=== PATIENT | male | born 1965 | race Caucasian/White ===

== ENCOUNTER 2024-02-24 09:56 | Outpatient (AMB) | payer OTHER, SELFPAY ==
--- NOTE | 2024-02-24 10:20 | A.OFFPC_ITS ---
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 ?? Prior PCP:? Dr Bates Last office visit/CPE:? 3 yrs ago Acute issue(s):? Some upset stomach ?? PMHx:? Stomach Upset, PreDM, Dpression - has therapist/presciber SurgHx:? None FHx:?Dad: HLD, CAD, afib. Mom: CAD, [place] age 58. Sister: HLD. SocHx: Nonsmoker. EtOH 3 beers 2x a week. MJ daily for anxiety. 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 1. Little interest or pleasure in doing things: not at all 2. Feeling down, depressed, or hopeless: several days 3. Trouble falling or staying asleep, or sleeping too much: not at all 4. Feeling tired or having little energy: several days 5. Poor appetite or overeating: not at all 6. Feeling bad about yourself - or that you are a failure or have let yourself or your family down: not at all 7. Trouble concentrating on things, such as reading the newspaper or watching television: not at all 8. Moving or speaking so slowly that other people could have noticed. Or the opposite - being so fidgety or restless that you have been moving around a lot more than usual: not at all 9. Thoughts that you would be better off or of hurting yourself in some way: not at all Total score: 2 Depression Screening Interpretation: Negative Depression Screening Done: Yes 43291 - PHQ-9 Billing: Yes Source: Developed by Drs. Ranjan Lujan, Alma Don, Abbe Pal and colleagues, with an educational reuben from [employer]. Thrive Questionnaire Date Thrive assessed: 02/24/24 I am a: Patient What is your living situation today?: I have a steady place to live Within the past 12 months, did the food you bought not last and you didn't have the money to get more?: Never true Within the past 12 months, did you worry whether your food would run out before you got money to buy more?: Sometimes True Do you have trouble paying for medicines?: No Do you have trouble getting transportation to medical appointments?: No Do you have trouble paying your heating and electricity bill?: Yes Do you have trouble taking care of your child, family member or friend?: No Do you have trouble with day-to-day activities such as bathing, preparing meals, shopping, managing finances, etc.?: No Are you currently unemployed and looking for a job?: No Are you interested in more education?: No Please select the resources that you would like help with: Utilities Currently or been in a relationship where the following occur: No concerns reported THRIVE Score: 2 AUDIT C Alcohol Use Questionnaire (AUDIT-C) 1. How often do you have a drink containing alcohol?: 2-3 times a week 2. How many drinks containing alcohol do you have on a typical day when you are drinking?: 3 or 4 3. How often do you have six or more drinks on one occasion?: Less than monthly Total Score: 5 Score Reviewed/Action Taken: Yes SANDEEP-7 AMB Questionnaire SANDEEP-7 Date SANDEEP - 7 assessed: 02/24/24 Feeling nervous, anxious, or on edge: 1 = Several days Not being able to stop or control worryin = Several days Worrying too much about different things: 1 = Several days Trouble relaxin = Several days Being so restless that it is hard to sit still: 1 = Several days Becoming easily annoyed or irritable: 1 = Several days Feeling afraid as if something awful might happen: 0 = Not at all Total SANDEEP-7 score (0-4 normal; 5-9 mild; 10-14 moderate; 15-21 severe): 6 Source: Developed by Drs. Ranjan Lujan, Alma Don, Abbe Pal and colleagues, with an educational reuben from [employer]. SANDEEP-7 Assessment Billing SANDEEP-7 Assessment Tool: SANDEEP-7 Assessment 61383 Review of Systems Const Denies chills, Denies fatigue, Denies fever(s), Denies headache(s) and Denies weakness ENT Denies dizziness and Denies headache(s) Card Denies chest pain, Denies lightheadedness, Denies dyspnea and Denies other (Palpitations) Resp Denies cough, Denies dyspnea, Denies wheezing and Denies other ( shortness of breath) Musc Denies numbness and Denies tingling Neuro Denies dizziness, Denies headache(s), Denies numbness, Denies tingling, Denies paresthesias and Denies weakness Psych Reports anxiety and Reports depression Endo Denies fatigue Aller/Immun Denies wheezing Physical exam (Primary Care) Vital Signs: Last Vital Signs Temp 98.3 F 02/24/24 10:26 Pulse 74 02/24/24 10:26 Resp 16 02/24/24 10:26 BP 130/70 02/24/24 10:26 Pulse Ox 98 02/24/24 10:26 Oxygen Delivery Method Room Air 02/24/24 10:26 BMI result Body Mass Index 26.3 Tobacco/Smoking Status: Tobacco use Status Tobacco use date assessed 02/24/24 02/24/24 10:34 Patient Tobacco Use Status Never used Tobacco 02/24/24 10:34 e-Cigarette/Vaping Use Never Used 02/24/24 10:34 PHQ-9: PHQ-9 Score PHQ-9: Total score 2 02/24/24 10:34 Depression Screening Interpretation: Negative Thrive Assessment: Date of Thrive Assessment Date Thrive assessed 02/24/24 02/24/24 10:34 Currently or been in a relationship where the following occur: No concerns reported Const General: no acute distress and well developed Nutritional Appearance: well nourished Orientation/consciousness: patient oriented x3 HENMT Head: Yes normocephalic and Yes atraumatic Eyes General: appearance normal, both eyes and all related structures Pupils: Equal, round and reactive pupils present EOM: EOMs intact bilaterally Resp Effort & Inspection: normal respiratory effort Auscultation: clear to auscultation bilaterally Cardio Rate: regular rate Rhythm: regular rhythm Heart sounds: S1 normal heart sound present, S2 normal heart sound present, no gallops, no murmurs and no rubs Neuro General: patient oriented x3 and gait normal Cranial nerves: Yes Equal, round and reactive pupils present Psych Affect: normal affect Assessment and Plan Assessment & Plan (1) Pre-diabetes: Code(s): R73.03 - Prediabetes Plan: A1c?has?been?in?pre?diabetes?range?in?the?past He?was?advised?to?decrease?soda?and?sweets?intake?but?has?not?done?so Will?recheck?fasting?blood?sugar?and?A1c Recommended?he?work?on?dietary?changes Will?follow-up?at?next?visit (2) GERD (gastroesophageal reflux disease): Code(s): K21.9 - Gastro-esophageal reflux disease without esophagitis Plan: Continue?omeprazole?which?controls?his?symptoms (3) Depression with anxiety: Code(s): F41.8 - Other specified anxiety disorders Plan: Has?a?therapist/provider Currently?not?on?medications?except?medical?marijuana Follow-up?with?therapist/provider?as?recommended (4) Abdominal discomfort: Code(s): R10.9 - Unspecified abdominal pain Plan: As?above,?patient?says?this?is?managed?with?omeprazole?which?he?can?continue (5) FHx: early [place]: Code(s): Z82.49 - Family history of ischemic heart disease and other diseases of the circulatory system Plan: Strong?family?history?of?early?[place]? as?his?mother?passed?away?from?a?heart?attack?at?age?58. Advised?we?work?on?controlling?risk?factors?such?as?cholesterol,?blood?sugar?and ?blood?pressure Will?follow-up?with?patient (6) Laboratory exam ordered as part of routine general medical examination: Code(s): Z00.00 - Encounter for general adult medical examination without abnormal findi ngs Plan: Check?labs Orders: Orders Comprehensive [place]. Panel Fast Today Z00.00 - Encounter for general adult medical examination without abnormal findings Hemoglobin A1c Today R73.01 - Impaired fasting glucose Microalbumin, Random (w Creat) Today I10 - Essential (primary) hypertension UA and rflx microscopic Today Z00.00 - Encounter for general adult medical examination without abnormal findings TSH reflex Free T4 Today Z00.00 - Encounter for general adult medical examination without abnormal findings Lipid Panel Today Z00.00 - Encounter for general adult medical examination without abnormal findings Prostate Specific Antigen Scr Today Z12.5 - Encounter for screening for malignant neoplasm of prostate Medications: New omeprazole 20 mg PO DAILY 90 days 90 caps 3RF Coding Level of Care Code New Pt Level 3 (12993) Diagnoses Pre-diabetes R73.03 GERD (gastroesophageal reflux disease) K21.9 Depression with anxiety F41.8 Abdominal discomfort R10.9 FHx: early [place] Z82.49 Laboratory exam ordered as part of routine general medical examination Z00.00 Additional Codes SANDEEP-7 Assessment Billing - SANDEEP-7 Assessment Tool: SANDEEP-7 Assessment 49067 ([id number])
[2024-02-24 10:26] VITALS: BP 130/70; PULSE 74; RESP 16; TEMP 36.8; O2SAT 98; BMI 26.3
== END 2024-02-24 11:18 | disposition home or self-care (01) ==
PROVIDERS: PCP Family Medicine; Visit Provider Family Medicine
DX: R73.03 Prediabetes (principal); K21.9 Gastro-esophageal reflux disease without esophagitis; F41.8 Other specified anxiety disorders; R10.9 Unspecified abdominal pain; Z82.49 Family history of ischemic heart disease and other diseases of the circulatory system; Z00.00 Encounter for general adult medical examination without abnormal findings
CPT/HCPCS: 99203

== ENCOUNTER 2024-04-25 08:49 | Outpatient (REF) | payer OTHER, SELFPAY ==
[2024-04-25 11:31] LABS: Appearance Urine Turbid; Color Urine Yellow; Glucose Urine UA Negative (Negative); Leukocyte Esterase Urine Negative (Negative); Nitrite Urine Negative (Negative); PH 5.5 (5.0-9.0); Urine Blood Negative (Negative); Urine Ketones Negative (Negative); Urine Protein Negative (Neg-Trace)
[2024-04-25 12:23] LABS: Estimated Average Glucose 117 mg/dL; Hemoglobin A1c % 5.7 % (<6.0)
[2024-04-25 12:29] LABS: Microalbum/Creatinine Ratio Ur 5.8 ug/mg cr (<30)
[2024-04-25 12:39] LABS: Prostate Specific Antigen Scr 1.74 ng/mL (<0.05-4.0)
[2024-04-25 12:47] LABS: Alanine Aminotransferase 20 U/L (0-40); Albumin Level 4.2 g/dL (3.5-5.0); Alkaline Phosphatase 63 U/L (39-117); Anion Gap 13 (12-20); Aspartate Amino Transferase 21 U/L (5-37); Bilirubin Total 0.6 mg/dL (0.0-1.0); Blood Urea Nitrogen 14 mg/dL (9-16); Calcium 9.5 mg/dL (8.4-10.2); Carbon Dioxide 27 mmol/L (22-29); Chloride 105 mmol/L (96-108); Cholesterol 203 mg/dL (<200); Estimated Glomerular Filt Rate > 60; Glucose Fasting 107 mg/dL (60-99); HDL Cholesterol 46 mg/dL (>40); LDL Cholesterol Calculated 128 mg/dL (<100); Potassium 3.9 mmol/L (3.3-5.1); Sodium 141 mmol/L (135-145); TSH reflex Free T4 1.44 uIU/mL (0.32-4.0); Total Protein 6.9 g/dL (6.5-8.0); Triglycerides 149 mg/dL (<150)
== END 2024-04-25 08:50 | disposition home or self-care (01) ==
LOC: HO.WFDLDS 08:49
PROVIDERS: Visit Provider Family Medicine
DX: Z00.00 Encounter for general adult medical examination without abnormal findings (principal); R73.01 Impaired fasting glucose; I10 Essential (primary) hypertension; Z12.5 Encounter for screening for malignant neoplasm of prostate
CPT/HCPCS: 36415; 80053; 80061; 81003; 82043; 82570; 83036; 84153; 84443

== ENCOUNTER 2024-04-28 15:50 | Outpatient (AMB) | payer OTHER, SELFPAY ==
--- NOTE | 2024-04-28 16:04 | A.OFFPC_ITS ---
Vital Signs 04/28/24 16:07 04/28/24 16:08 Height 5 ft 6 in Weight 162 lb BMI 26.1 BP 150/70 H 140/70 H Blood Pressure Location Lt brachial Lt brachial Position Sitting Sitting Respiration 14 Pulse 77 Pulse Source Pulse Oximeter Pulse Oximetry (%) 98 Oxygen Delivery Method Room Air Intake Visit Reasons: CPE with f/u labs, health maint 30 mins Intake Note: CPE Allergies penicillin V Allergy (Unknown, Verified 04/28/24 16:04) unsure Medication List - Last Reconciled 04/28/24 by Bob Ward MD omeprazole 20 mg PO DAILY 90 days Tobacco use date assessed: 04/28/24 Dental Screening Dental Screen Date: 04/28/24 Did you have a dental visit in the last 12 months?: Yes Did you have a dental problem in the last 6 months where you did not have access to dental care?: No Was dental information given to patient?: Patient has dentist HPI CPE with f/u labs, health maint 30 mins HPI Details 58 y/o male presents for an extended exa m with f/u labs and health maintenance. Labs drawn 04/25/24. Reviewed labs with pt. Elevated fasting glucose of 107 and A1c 5.7%. Triglycerides 149. TC 203. LDL 128. HDL 46. PSA 1.74. Has a FHx early CT. Blood pressure today 140/70, 77p. Has not been watching the salt/sodium in his diet. He notes he sleeps well. Denies any symptoms of sleep apnea. HPI Comments History of Present Illness Details Documentation assistance for Bob Ward MD, was provided by Kapil Falk,? Time Lock Expert on 04/28/2024 at 4:32 PM EST. I, Dr. Ward, have read, observed, and verified documentation. 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 1. Little interest or pleasure in doing things: several days 2. Feeling down, depressed, or hopeless: several days 3. Trouble falling or staying asleep, or sleeping too much: several days 4. Feeling tired or having little energy: several days 5. Poor appetite or overeating: several days 6. Feeling bad about yourself - or that you are a failure or have let yourself or your family down: not at all 7. Trouble concentrating on things, such as reading the newspaper or watching television: several days 8. Moving or speaking so slowly that other people could have noticed. Or the opposite - being so fidgety or restless that you have been moving around a lot more than usual: not at all 9. Thoughts that you would be better off or of hurting yourself in some way: not at all Total score: 6 Depression Screening Interpretation: Positive Depression Screening Done: Yes 14383 - PHQ-9 Billing: Yes Source: Developed by Drs. Ranjan Lujan, Alma Don, Abbe Pal and colleagues, with an educational reuben from [employer]. Thrive Questionnaire Date Thrive assessed: 04/28/24 I am a: Patient What is your living situation today?: I have a steady place to live Within the past 12 months, did the food you bought not last and you didn't have the money to get more?: Sometimes True Within the past 12 months, did you worry whether your food would run out before you got money to buy more?: Sometimes True Do you have trouble paying for medicines?: No Do you have trouble getting transportation to medical appointments?: No Do you have trouble paying your heating and electricity bill?: Yes Do you have trouble taking care of your child, family member or friend?: No Do you have trouble with day-to-day activities such as bathing, preparing meals, shopping, managing finances, etc.?: No Are you currently unemployed and looking for a job?: No Are you interested in more education?: No Please select the resources that you would like help with: None Currently or been in a relationship where the following occur: No concerns reported THRIVE Score: 3 AUDIT C Alcohol Use Questionnaire (AUDIT-C) 1. How often do you have a drink containing alcohol?: 2-3 times a week 2. How many drinks containing alcohol do you have on a typical day when you are drinking?: 3 or 4 3. How often do you have six or more drinks on one occasion?: Never Total Score: 4 SANDEEP-7 AMB Questionnaire SANDEEP-7 Date SANDEEP - 7 assessed: 04/28/24 Feeling nervous, anxious, or on edge: 1 = Several days Not being able to stop or control worryin = Several days Worrying too much about different things: 1 = Several days Trouble relaxin = Several days Being so restless that it is hard to sit still: 1 = Several days Becoming easily annoyed or irritable: 1 = Several days Feeling afraid as if something awful might happen: 1 = Several days Total SANDEEP-7 score (0-4 normal; 5-9 mild; 10-14 moderate; 15-21 severe): 7 Source: Developed by Drs. Ranjan Lujan, Alma Don, Abbe Pal and colleagues, with an educational reuben from [employer]. SANDEEP-7 Assessment Billing SANDEEP-7 Assessment Tool: SANDEEP-7 Assessment 25790 Review of Systems Const Denies chills, Denies fatigue, Denies fever(s), Denies headache(s) and Denies weakness Eyes Denies change in vision ENT Denies dizziness, Denies headache(s), Denies hearing loss, Denies nasal congestion, Denies sinus pain, Denies sinus pressure and Denies sore throat Card Denies chest pain, Denies lightheadedness, Denies dyspnea and Denies other (palpitations) Resp Denies cough, Denies dyspnea and Denies wheezing GI Denies abdominal pain, Denies melena, Denies hematochezia, Denies change in bowel habits, Denies dyspepsia and Denies nausea Denies hematuria and Denies dysuria Musc Denies abnormal gait, Denies myalgias, Denies arthralgias, Denies numbness and Denies tingling Skin/Breast Denies rash, Denies unusual bruising and Denies wounds Neuro Denies abnormal gait, Denies dizziness, Denies headache(s), Denies memory loss, Denies numbness, Denies Sensory deficit (Neuro), Denies tingling and Denies weakness Psych Denies anxiety, Denies depression and Denies memory loss Endo Denies cold intolerance, Denies fatigue, Denies heat intolerance, Denies polydipsia and Denies polyuria Rui/Lymph Denies easy bleeding and Denies easy bruising Aller/Immun Denies wheezing Physical exam (Primary Care) Vital Signs: Last Vital Signs Pulse 77 04/28/24 16:07 Resp 14 04/28/24 16:07 BP 140/70 H 04/28/24 16:08 Pulse Ox 98 04/28/24 16:07 Oxygen Delivery Method Room Air 04/28/24 16:07 BMI result Body Mass Index 26.1 Tobacco/Smoking Status: Tobacco use Status Tobacco use date assessed 04/28/24 04/28/24 16:10 Patient Tobacco Use Status Never used Tobacco 04/28/24 16:10 e-Cigarette/Vaping Use Never Used 04/28/24 16:10 PHQ-9: PHQ-9 Score PHQ-9: Total score 6 04/28/24 16:10 Depression Screening Interpretation: Positive Thrive Assessment: Date of Thrive Assessment Date Thrive assessed 04/28/24 04/28/24 16:10 Currently or been in a relationship where the following occur: No concerns reported Const General: no acute distress, well developed, alert and awake Nutritional Appearance: well nourished Orientation/consciousness: patient oriented x3 HENMT Head: Yes normocephalic and Yes atraumatic Ears: hearing grossly normal bilaterally and TM's normal bilaterally General nose exam: Normal external nose present and Normal nares present Mouth: Normal oral and palatal mucosa present and moist mucous membranes Teeth and gingiva: dentition normal Throat: Yes posterior oropharynx normal Eyes General: appearance normal, both eyes and all related structures Pupils: Equal, round and reactive pupils present and Pupil accommodation reflex normal EOM: EOMs intact bilaterally Neck Neck: Yes normal visual inspection, Yes no lymphadenopathy and Yes trachea midline Thyroid: Thyroid normal Carotids: no bruits Lymphatic: no lymphadenopathy noted Chest Chest palpation & inspection: normal inspection of the chest Resp Effort & Inspection: normal respiratory effort Auscultation: clear to auscultation bilaterally Cardio Rate: regular rate Rhythm: regular rhythm Heart sounds: S1 normal heart sound present, S2 normal heart sound present, no gallops, no murmurs and no rubs Bruits: no abdominal aortic bruits and no carotid bruits GI Palpation (GI): No Abdominal aortic bruit present, Soft to palpation, nontender, No hepatosplenomegaly present and No Rebound tenderness present Auscultation: normal bowel sounds General: Yes no CVA tenderness Back/Spine/Pelvis Back: no CVA tenderness Cervical Spine: cervical ROM normal and No Cervical spine tenderness Thoracic/Lumbar Spine: thoraco-lumbar ROM normal, No pain with thoraco-lumbar ROM, No thoracic spinal tenderness and No lumbar spinal tenderness Skin Lesions: no lesions Rashes: no rashes Trauma: no lacerations or abrasions Wounds: no wounds Nails: normal Neuro General: patient oriented x3 Cranial nerves: Yes Equal, round and reactive pupils present Cognition (Neuro): normal cognition Gait exam (Neuro): Normal gait present Motor exam (neuro): 5/5 motor strength present throughout Sensory Exam: No Sensory deficit (Neuro) Deep tendon reflexes (DTR's): Right patellar reflex intensity grade: 2+ and Left patellar reflex intensity grade: 2+ Extrem General: Yes normal to inspection and No edema Psych Appearance: grossly normal Affect: normal affect Attitude: cooperative Thought process: Normal thought process present Coding Level of Care Code Est Pt Level 4 (22430) Diagnoses FHx: early CT Z82.49 Elevated blood pressure reading R03.0 Pre-diabetes R73.03 GERD (gastroesophageal reflux disease) K21.9 Elevated LDL cholesterol level E78.00 Screening for prostate cancer Z12.5 Screening for colon cancer Z12.11 Adult general medical exam Z00.00 Additional Codes SANDEEP-7 Assessment Billing - SANDEEP-7 Assessment Tool: SANDEEP-7 Assessment 32993 ([id number]) Assessment & Plan Assessment & Plan (1) FHx: early CT: Code(s): Z82.49 - Family history of ischemic heart disease and other diseases of the circulatory system Category: Medical Plan: Strong?family?history?of?early?CT Work?on?decreasing?risk?factors?such?as?high?blood?pressure,?high?blood?sugar?an d?cholesterol (2) Elevated blood pressure reading: Code(s): R03.0 - Elevated blood-pressure reading, without diagnosis of hypertension Category: Medical Plan: Prehypertensive?at?prior?visit?and?in?hypertensive?range?today. Patient?notes?that?he?has?had?stressors?today. We?discussed?that?he?should?work?on?a?diet?lower?in?salt/sodium I?encouraged?exercise?and?weight?loss He?has?a?strong?family?history?of?early?[place].??We?discussed?that?if?blood?pressure ?is?still?elevated?at?next?visit?we?should?consider?medication (3) Pre-diabetes: Code(s): R73.03 - Prediabetes Category: Medical Plan: A1c?5.7%. Patient?says?he?drinks?lots?of?soda Encouraged?decrease?in?sugars?and?starches?including?soda Encouraged?weight?loss?and?exercise (4) GERD (gastroesophageal reflux disease): Code(s): K21.9 - Gastro-esophageal reflux disease without esophagitis Category: Medical Plan: Takes?omeprazole He?will?take?this?in?anticipation?of?any?symptoms. If?he?is?having?frequent?symptoms?he?will?take?daily (5) Elevated LDL cholesterol level: Code(s): E78.00 - Pure hypercholesterolemia, unspecified Category: Medical Plan: Encouraged?diet?lower?in?saturated?fats?and?cholesterol Encouraged?weight?loss?and?exercise Will?recheck?lipids?prior ?to?next?visit?and?if?still?elevated?will?discuss?medication?as?patient?has?stro ng?family?history?of?early?[place] (6) Screening for prostate cancer: Code(s): Z12.5 - Encounter for screening for malignant neoplasm of prostate Category: Medical Plan: PSA?was?within?normal?range Will?continue?to?monitor?annually (7) Screening for colon cancer: Code(s): Z12.11 - Encounter for screening for malignant neoplasm of colon Category: Medical Plan: Patient?had?Cologuard?testing?previously.??He?is?overdue?for?repeat?Cologuard - ordered (8) Adult general medical exam: Code(s): Z00.00 - Encounter for general adult medical examination without abnormal f indings Category: Medical Plan: 58-year-old?male?presents?for?an?extended?exam Encouraged?healthy?diet?with?active?lifestyle?and?plenty?of?exercise Orders: Orders Lipid Panel Today E78.00 - Pure hypercholesterolemia, unspecified, Z00.00 - Encounter for general adult medical examination without abnormal findings Comprehensive [place]. Panel Fast Today E78.00 - Pure hypercholesterolemia, unspecified, Z00.00 - Encounter for general adult medical examination without abnormal findings Referrals Cologuard Test Z12.11 - Encounter for screening for malignant neoplasm of colon, Z12.12 - Encounter for screening for malignant neoplasm of rectum
[2024-04-28 16:07] VITALS: BP 150/70; PULSE 77; RESP 14; O2SAT 98; BMI 26.1
[2024-04-28 16:08] VITALS: BP 140/70
== END 2024-04-28 16:50 | disposition home or self-care (01) ==
PROVIDERS: PCP Family Medicine; Visit Provider Family Medicine
DX: Z82.49 Family history of ischemic heart disease and other diseases of the circulatory system (principal); R03.0 Elevated blood-pressure reading, without diagnosis of hypertension; R73.03 Prediabetes; K21.9 Gastro-esophageal reflux disease without esophagitis; E78.00 Pure hypercholesterolemia, unspecified; Z12.5 Encounter for screening for malignant neoplasm of prostate; Z12.11 Encounter for screening for malignant neoplasm of colon; Z00.00 Encounter for general adult medical examination without abnormal findings

== ENCOUNTER → 2024-04-28 15:50 | Outpatient (BNVA) | payer OTHER, SELFPAY | PROVIDERS: PCP Family Medicine; Visit Provider Family Medicine | DX: Z00.01 Encounter for general adult medical examination with abnormal findings (principal); R03.0 Elevated blood-pressure reading, without diagnosis of hypertension; R73.03 Prediabetes; K21.9 Gastro-esophageal reflux disease without esophagitis; E78.00 Pure hypercholesterolemia, unspecified; Z82.49 Family history of ischemic heart disease and other diseases of the circulatory system | CPT/HCPCS: 96127; 99212 ==

== ENCOUNTER 2024-09-26 09:10 | Outpatient (REF) | payer OTHER, SELFPAY ==
[2024-09-26 12:29] LABS: Alanine Aminotransferase 32 U/L (0-40); Albumin Level 4.3 g/dL (3.5-5.0); Alkaline Phosphatase 60 U/L (39-117); Anion Gap 11 (12-20); Aspartate Amino Transferase 24 U/L (5-37); Bilirubin Total 0.6 mg/dL (0.0-1.0); Blood Urea Nitrogen 16 mg/dL (9-16); Calcium 9.3 mg/dL (8.4-10.2); Carbon Dioxide 30 mmol/L (22-29); Chloride 105 mmol/L (96-108); Cholesterol 230 mg/dL (<200); Estimated Glomerular Filt Rate > 60; Glucose Fasting 116 mg/dL (60-99); HDL Cholesterol 45 mg/dL (>40); LDL Cholesterol Calculated 145 mg/dL (<100); Potassium 4.4 mmol/L (3.3-5.1); Sodium 142 mmol/L (135-145); Total Protein 7.4 g/dL (6.5-8.0); Triglycerides 204 mg/dL (<150)
== END 2024-09-26 09:11 | disposition home or self-care (01) ==
LOC: HO.WFDLDS 09:10
PROVIDERS: Visit Provider Family Medicine
DX: Z00.00 Encounter for general adult medical examination without abnormal findings (principal); E78.00 Pure hypercholesterolemia, unspecified
CPT/HCPCS: 36415; 80053; 80061

== ENCOUNTER → 2024-09-29 11:09 | Outpatient (BNVA) | payer OTHER, SELFPAY | PROVIDERS: PCP Family Medicine; Visit Provider Family Medicine ==

== ENCOUNTER 2025-02-09 14:37 | Outpatient (AMB) | payer OTHER, SELFPAY ==
--- NOTE | 2025-02-09 14:58 | MHC.PC.OV ---
Vital Signs 02/09/25 15:14 Height 5 ft 6 in Weight 161 lb 2 oz BMI 26.0 BP 142/84 H Blood Pressure Location Lt brachial Position Sitting Respiration 14 Pulse 74 Pulse Source Pulse Oximeter Temp 79.9 F L Temp Source Temporal Artery Scan Pulse Oximetry (%) 97 Oxygen Delivery Method Room Air Intake Visit Reasons: Anxiety Intake Note: patient is scheduled for lab review and pre-dm follow up Bond Underwriter Required: No Allergies penicillin V Allergy (Unknown, Verified 02/09/25 15:08) unsure Medication List - Last Reconciled 02/09/25 by Bob Ward MD citalopram 20 mg PO DAILY 30 days hydroxyzine HCl 50 mg PO BEDTIME 30 days omeprazole 20 mg PO DAILY 90 days Tobacco use date assessed: 02/09/25 Dental Screening Dental Screen Date: 02/09/25 Did you have a dental visit in the last 12 months?: Yes Did you have a dental problem in the last 6 months where you did not have access to dental care?: No Was dental information given to patient?: Patient has dentist HPI Anxiety HPI Details 59 y/o male presents to f/u HTN, HLD, pre-diabetes. Also has complaints of anxiety. Strong FHx of early IA. Last labs drawn 09/26/24. Reviewed labs with pt. Triglycerides 204. TC 230. LDL 145. HDL 45. A1c today 6.1%. BP today 142/84, 74p. PHQ-9 18, SANDEEP-7 20 today. Pt notes he feels he has always been anxious but stressors have been worsening mood. Denies any SI/HI. 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 1. Little interest or pleasure in doing things: nearly every day 2. Feeling down, depressed, or hopeless: nearly every day 3. Trouble falling or staying asleep, or sleeping too much: nearly every day 4. Feeling tired or having little energy: nearly every day 5. Poor appetite or overeating: several days 6. Feeling bad about yourself - or that you are a failure or have let yourself or your family down: more than half the days 7. Trouble concentrating on things, such as reading the newspaper or watching television: nearly every day 8. Moving or speaking so slowly that other people could have noticed. Or the opposite - being so fidgety or restless that you have been moving around a lot more than usual: not at all 9. Thoughts that you would be better off or of hurting yourself in some way: not at all Total score: 18 Depression Screening Interpretation: Positive Depression Screening Done: Yes 05060 - PHQ-9 Billing: Yes Source: Developed by Drs. Ranjan Lujan, Alma Don, Abbe Pal and colleagues, with an educational reuben from [employer]. Thrive Questionnaire Date Thrive assessed: 02/09/25 I am a: Patient What is your living situation today?: I have a place to live, but I am worried about losing it in the future Within the past 12 months, did the food you bought not last and you didn't have the money to get more?: Sometimes True Within the past 12 months, did you worry whether your food would run out before you got money to buy more?: Sometimes True Do you have trouble paying for medicines?: No Do you have trouble getting transportation to medical appointments?: No Do you have trouble paying your heating and electricity bill?: Yes Do you have trouble taking care of your child, family member or friend?: No Do you have trouble with day-to-day activities such as bathing, preparing meals, shopping, managing finances, etc.?: No Are you currently unemployed and looking for a job?: Yes Are you interested in more education?: No Please select the resources that you would like help with: None Currently or been in a relationship where the following occur: No concerns reported THRIVE Score: 4 SANDEEP-7 AMB Questionnaire SANDEEP-7 Date SANDEEP - 7 assessed: 02/09/25 Feeling nervous, anxious, or on edge: 3 = Nearly every day Not being able to stop or control worryin = Nearly every day Worrying too much about different things: 3 = Nearly every day Trouble relaxin = Nearly every day Being so restless that it is hard to sit still: 2 = More than half the days Becoming easily annoyed or irritable: 3 = Nearly every day Feeling afraid as if something awful might happen: 3 = Nearly every day Total SANDEEP-7 score (0-4 normal; 5-9 mild; 10-14 moderate; 15-21 severe): 20 Source: Developed by Drs. Ranjan Lujan, Alma Don, Abbe Pal and colleagues, with an educational reuben from [employer]. SANDEEP-7 Assessment Billing SANDEEP-7 Assessment Tool: SANDEEP-7 Assessment 01531 Review of Systems Const Denies chills, Denies fatigue, Denies fever(s), Denies headache(s) and Denies weakness ENT Denies dizziness and Denies headache(s) Card Denies dyspnea Resp Denies cough, Denies dyspnea, Denies wheezing and Denies other (shortness of breath) Musc Denies numbness and Denies tingling Neuro Denies dizziness, Denies headache(s), Denies numbness, Denies tingling and Denies weakness Psych Reports anxiety and Reports depression Endo Denies fatigue Aller/Immun Denies wheezing Physical exam (Primary Care) Vital Signs: Last Vital Signs Temp 79.9 F L 02/09/25 15:14 Pulse 74 02/09/25 15:14 Resp 14 02/09/25 15:14 BP 142/84 H 02/09/25 15:14 Pulse Ox 97 02/09/25 15:14 Oxygen Delivery Method Room Air 02/09/25 15:14 BMI result Body Mass Index 26.0 Tobacco/Smoking Status: Tobacco use Status Tobacco use date assessed 02/09/25 02/09/25 15:17 Patient Tobacco Use Status Never used Tobacco 02/09/25 15:09 e-Cigarette/Vaping Use Never Used 02/09/25 15:09 PHQ-9: PHQ-9 Score PHQ-9: Total score 18 07/17/25 15:25 Depression Screening Interpretation: Positive Thrive Assessment: Date of Thrive Assessment Date Thrive assessed 02/09/25 02/09/25 15:17 Currently or been in a relationship where the following occur: No concerns reported Const General: well developed; No acute distress Nutritional Appearance: well nourished Orientation/consciousness: patient oriented x3 HENMT Head: Yes normocephalic and Yes atraumatic Eyes General: appearance normal, both eyes and all related structures Pupils: Equal, round and reactive pupils present EOM: EOMs intact bilaterally Resp Effort & Inspection: normal respiratory effort Neuro General: patient oriented x3 and gait normal Cranial nerves: Yes Equal, round and reactive pupils present Psych Affect: normal affect Results AMB Hemoglobin A1c AMB Hemoglobin A1c 6.1 % Last Edit by Deidre Ham MA on 02/09/25 15:29 Results Reviewed Results Reviewed: Laboratory Last Values Hgb A1c (Clinic) 6.1 % (4.0-6.0) H 02/09/25 15:21 Coding Level of Care Code Est Pt Level 3 (23999) Diagnoses Pre-diabetes R73.03 Depression with anxiety F41.8 Elevated blood pressure reading R03.0 Additional Codes SANDEEP-7 Assessment Billing - SANDEEP-7 Assessment Tool: SANDEEP-7 Assessment 47803 ([id number]) PHQ-9 - 28749 - PHQ-9 Billing: Yes ([id number]) Assessment & Plan Assessment & Plan (1) Pre-diabetes: Code(s): R73.03 - Prediabetes Category: Medical (2) Depression with anxiety: Code(s): F41.8 - Other specified anxiety disorders Category: Medical (3) Elevated blood pressure reading: Code(s): R03.0 - Elevated blood-pressure reading, without diagnosis of hypertension Category: Medical Plan Moderately severe/severe anxiety and depression. Patient notes that he has always been somewhat anxious but has had numerous significant stressors in his life lately. He does have a therapist in encouraged him to continue with therapy. We discussed 1st and 2nd line medications for anxiety and medication for depression. Patient does note that he has a history of substance abuse and would like to avoid habit-forming medications. Will start citalopram 20 mg tablet and he will titrate up from 10 mg 20 mg as tolerated Can use hydroxyzine for severe symptoms or at bedtime A1c 6.1%. Pre diabetes range. Encouraged diet lower in sugars and starches Will continue to monitor We have been following patient's lipids and he is due recheck this. Will review at his next visit Elevated blood pressure Patient is very stressed today. Treating anxiety as above Will re-evaluate blood pressure when he is less anxious. We did discuss however that if we are not able to treat anxiety we may still want to address his blood pressure as a primary issue. Orders: Orders AMB Hemoglobin A1c Today R73.03 - Prediabetes Medications: New citalopram 20 mg PO DAILY 30 tabs 2RF 30 days hydroxyzine HCl 50 mg PO BEDTIME 30 days 15 tabs 0RF hydroxyzine HCl 50 mg PO DAILY PRN 30 tabs 0RF anxiety 30 days
[2025-02-09 15:14] VITALS: BP 142/84; PULSE 74; RESP 14; TEMP 26.6; O2SAT 97; BMI 26.0
== END 2025-02-09 15:49 | disposition home or self-care (01) ==
LOC: HO.HMCFM 14:38
PROVIDERS: PCP Family Medicine; Visit Provider Family Medicine
DX: R73.03 Prediabetes (principal); F41.8 Other specified anxiety disorders; R03.0 Elevated blood-pressure reading, without diagnosis of hypertension

== ENCOUNTER → 2025-02-09 14:37 | Outpatient (BNVA) | payer OTHER, SELFPAY | PROVIDERS: PCP Family Medicine; Visit Provider Family Medicine | DX: I10 Essential (primary) hypertension (principal); E78.5 Hyperlipidemia, unspecified; R73.03 Prediabetes; F41.8 Other specified anxiety disorders; R03.0 Elevated blood-pressure reading, without diagnosis of hypertension | CPT/HCPCS: 83036; 96127; 99212 ==

== ENCOUNTER 2025-03-20 08:38 | Outpatient (REF) | payer OTHER, SELFPAY ==
--- OUTSIDE RECORDS SUMMARY | 2025-03-20 09:04 | XMS_ITS | Clinical Summary ---
Author Organization [facility] Address [address] [place], [place] [id number] Phone Care Team Providers Care Enterprise Analyst Name Role Phone Albino Bates MD Primary Care Provider [phone] Allergies Active Allergy Reactions Criticality Noted Date Comments Penicillins Hives 06/17/2021 Medications omeprazole (PRILOSEC) 20 MG capsuleIndicatio ns:takes as needed Take 20 mg by mouth daily. Indications: takes as needed Active doxycycline monohydrate (MONODOX) 100 MG capsule Take 1 capsule (100 mg total) by mouth 2 (two) times a day. 20 capsule 06/17/2021 Active Active Problems No known active problems Immunizations No known immunizations Social History Tobacco Use Types Packs/Day Years Used Date Smoking Tobacco: Never Smokeless Tobacco: Never Education Answer Date Recorded Are you interested in more education? Not on linda e 11/22/2022 Are you concerned about learning? Not on file 11/22/2022 No 11/22/2022 No 11/22/2022 Digital Access Answer Date Recorded No 12/21/2022 No 12/21/2022 No 12/21/2022 Reliable internet access at home? Not on file 12/21/2022 Device with a working camera? Not on file Sex and Gender Information Value Date Recorded Sex Assigned at Not on file Legal Sex Male 11:49 AM EST Gender Identity Not on file Sexual Orientation Not on file Last Filed Vital Signs Vital Sign Reading Time Taken Comments Blood Pressure 187/93 06/19/2021 10:37 AM EST Pulse 80 06/19/2021 10:37 AM EST Temperature 36.8 C (98.2 F) 06/19/2021 10:37 AM EST Respiratory Rate 18 06/19/2021 10:37 AM EST Oxygen Saturation 98% 06/19/2021 10:37 AM EST Inhaled Oxygen Concentration - - Weight 76.2 kg (168 lb) 06/17/2021 12:01 PM EST per pt Height - - Body Mass Index - - Plan of Treatment Health Maintenance Due Date Last Done Comments Adult Td,Tdap Booster 1964 LIPID PANEL 1964 DEPRESSION SCREENING 1976 HEPATITIS C SCREENING 1982 HIV ONE-TIME SCREENING (18-6 5 YEARS) 1982 COLOGUARD 2009 COLONOSCOPY 2009 COLORECTAL CANCER SCREENING 2009 FIT TEST 2009 FOBT 2009 SIGMOIDOSCOPY 2009 VIRTUAL COLONOSCOPY 2009 PNEUMOCOCCAL VACCINES (50+ y ears) (1 of 1 - PCV) 2014 ZOSTER VACCINES (1 of 2) 2014 COVID-19 VACCINE (2 - 2023-2 5 season) 2024 10/31/2020 RSV VACCINE (1 - 1-dose 75+ series) 2039 SMOKING STATUS SCREENING (On ce After 26 Yrs) Completed 06/19/2021 HEPATITIS A VACCINES Aged Out No long er eligible based on patient's age to complete this topic HIB VACCINES Aged Out No longer eligi ble based on patient's age to complete this topic MENINGOCOCCAL VACCINES (ACWY) Aged Out No longer eligible based on patient's age to complete this topic MENINGOCOCCAL VACCINES (B) Aged Out N o longer eligible based on patient's age to complete this topic Medical Devices Not on [place] [address] [place] [address] [place] [address] [place] [address] [place] [address] [place] [address] [place] [address] [place] [address] ACO A[employer] [facility] [place] [address] Care Teams Enterprise Analyst Relationship Specialty Start Date End Date Albino Bates MD [address] [place] [address] PCP - General Internal Medicine 06/17/21 Additional Source Comments The information contained in this document represents components of the legal health record. It is not the complete legal health record.[facility]
[2025-03-20 11:53] LABS: Alanine Aminotransferase 29 U/L (0-40); Albumin Level 4.5 g/dL (3.5-5.0); Alkaline Phosphatase 62 U/L (39-117); Anion Gap 12 (12-20); Aspartate Amino Transferase 29 U/L (5-37); Blood Urea Nitrogen 23 mg/dL (9-16); Calcium 9.3 mg/dL (8.4-10.2); Carbon Dioxide 28 mmol/L (22-29); Chloride 106 mmol/L (96-108); Cholesterol 201 mg/dL (<200); Estimated Glomerular Filt Rate > 60; HDL Cholesterol 43 mg/dL (>40); Potassium 3.9 mmol/L (3.3-5.1); Sodium 142 mmol/L (135-145); Total Protein 6.9 g/dL (6.5-8.0); Triglycerides 188 mg/dL (<150)
== END 2025-03-20 08:39 | disposition home or self-care (01) ==
LOC: HO.WFDLDS 08:38
PROVIDERS: Visit Provider Family Medicine
DX: Z00.00 Encounter for general adult medical examination without abnormal findings (principal); E78.00 Pure hypercholesterolemia, unspecified
CPT/HCPCS: 36415; 80053; 80061

== ENCOUNTER 2025-03-22 14:44 | Outpatient (AMB) | payer OTHER, SELFPAY ==
--- NOTE | 2025-03-22 14:46 | MHC.PC.OV ---
Vital Signs 03/22/25 14:51 Height 5 ft 6 in Weight 161 lb BMI 26.0 BP 139/83 Blood Pressure Location Rt brachial Position Sitting Respiration 16 Pulse 64 Pulse Source Pulse Oximeter Temp 98.5 F Temp Source Oral Pulse Oximetry (%) 95 Oxygen Delivery Method Room Air Intake Visit Reasons: f/u anxiety/depression Intake Note: patient here for follow up on anxiety and depression Patient Care Technician Required: No Allergies penicillin V Allergy (Unknown, Verified 03/22/25 14:50) unsure Tobacco use date assessed: 03/22/25 Dental Screening Dental Screen Date: 03/22/25 Did you have a dental visit in the last 12 months?: Yes Did you have a dental problem in the last 6 months where you did not have access to dental care?: No Was dental information given to patient?: Patient has dentist HPI f/u anxiety/depression HPI Details Patient returns to follow-up anxiety depression as well as lab work and hypertension Had started him on citalopram and hydroxyzine. He notes improvement. He continues to follow with his therapist Blood pressure in prehypertensive range. 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 1. Little interest or pleasure in doing things: more than half the days 2. Feeling down, depressed, or hopeless: more than half the days 3. Trouble falling or staying asleep, or sleeping too much: more than half the days 4. Feeling tired or having little energy: several days 5. Poor appetite or overeating: several days 6. Feeling bad about yourself - or that you are a failure or have let yourself or your family down: several days 7. Trouble concentrating on things, such as reading the newspaper or watching television: several days 8. Moving or speaking so slowly that other people could have noticed. Or the opposite - being so fidgety or restless that you have been moving around a lot more than usual: several days 9. Thoughts that you would be better off or of hurting yourself in some way: several days Total score: 12 Depression Screening Interpretation: Positive Depression Screening Done: Yes 56621 - PHQ-9 Billing: Yes Source: Developed by Drs. Ranjan Lujan, Alma Don, Abbe Pal and colleagues, with an educational reuben from [employer]. Thrive Questionnaire Date Thrive assessed: 02/09/25 I am a: Patient What is your living situation today?: I have a steady place to live Within the past 12 months, did the food you bought not last and you didn't have the money to get more?: Sometimes True Within the past 12 months, did you worry whether your food would run out before you got money to buy more?: Sometimes True Do you have trouble paying for medicines?: No Do you have trouble getting transportation to medical appointments?: No Do you have trouble paying your heating and electricity bill?: Yes Do you have trouble taking care of your child, family member or friend?: No Do you have trouble with day-to-day activities such as bathing, preparing meals, shopping, managing finances, etc.?: No Are you currently unemployed and looking for a job?: No Are you interested in more education?: No Currently or been in a relationship where the following occur: No concerns reported THRIVE Score: 3 SANDEEP-7 AMB Questionnaire SANDEEP-7 Date SANDEEP - 7 assessed: 03/22/25 Feeling nervous, anxious, or on edge: 1 = Several days Not being able to stop or control worryin = Several days Worrying too much about different things: 1 = Several days Trouble relaxin = Several days Being so restless that it is hard to sit still: 1 = Several days Becoming easily annoyed or irritable: 1 = Several days Feeling afraid as if something awful might happen: 2 = More than half the days Total SANDEEP-7 score (0-4 normal; 5-9 mild; 10-14 moderate; 15-21 severe): 8 Source: Developed by Drs. Ranjan Lujan, Alam Don, Abbe Pal and colleagues, with an educational reuben from [employer]. SANDEEP-7 Assessment Billing SANDEEP-7 Assessment Tool: SANDEEP-7 Assessment 34412 Review of Systems Const Denies chills, Denies fatigue, Denies fever(s), Denies headache(s) and Denies weakness ENT Denies dizziness and Denies headache(s) Card Denies chest pain, Denies lightheadedness, Denies dyspnea and Denies other (Palpitations) Resp Denies cough, Denies dyspnea, Denies wheezing and Denies other ( shortness of breath) Musc Denies numbness and Denies tingling Neuro Denies dizziness, Denies headache(s), Denies numbness, Denies tingling, Denies paresthesias and Denies weakness Psych Denies anxiety and Denies depression Endo Denies fatigue Aller/Immun Denies wheezing Physical exam (Primary Care) Vital Signs: Last Vital Signs Temp 98.5 F 03/22/25 14:51 Pulse 64 03/22/25 14:51 Resp 16 03/22/25 14:51 BP 139/83 03/22/25 14:51 Pulse Ox 95 03/22/25 14:51 Oxygen Delivery Method Room Air 03/22/25 14:51 BMI result Body Mass Index 26.0 Tobacco/Smoking Status: Tobacco use Status Tobacco use date assessed 03/22/25 03/22/25 14:57 Patient Tobacco Use Status Never used Tobacco 03/22/25 14:57 e-Cigarette/Vaping Use Never Used 03/22/25 14:57 PHQ-9: PHQ-9 Score PHQ-9: Total score 12 03/22/25 14:57 Depression Screening Interpretation: Positive Thrive Assessment: Date of Thrive Assessment Date Thrive assessed 02/09/25 03/22/25 14:57 Currently or been in a relationship where the following occur: No concerns reported Const General: no acute distress and well developed Nutritional Appearance: well nourished Orientation/consciousness: patient oriented x3 HENMT Head: Yes normocephalic and Yes atraumatic Eyes General: appearance normal, both eyes and all related structures Pupils: Equal, round and reactive pupils present EOM: EOMs intact bilaterally Resp Effort & Inspection: normal respiratory effort Auscultation: clear to auscultation bilaterally Cardio Rate: regular rate Rhythm: regular rhythm Heart sounds: S1 normal heart sound present, S2 normal heart sound present, no gallops, no murmurs and no rubs Neuro General: patient oriented x3 and gait normal Cranial nerves: Yes Equal, round and reactive pupils present Psych Affect: normal affect Coding Level of Care Code Est Pt Level 4 (17735) Diagnoses Depression with anxiety F41.8 Hypertension I10 Elevated LDL cholesterol level E78.00 Additional Codes SANDEEP-7 Assessment Billing - SANDEEP-7 Assessment Tool: SANDEEP-7 Assessment 43633 ([id number]) PHQ-9 - 93904 - PHQ-9 Billing: Yes ([id number]) Assessment & Plan Assessment & Plan (1) Depression with anxiety: Code(s): F41.8 - Other specified anxiety disorders Category: Medical Plan: Improved on citalopram and hydroxyzine Continue current medication regimen Follow-up with therapist as recommended Encouraged regular exercise and plenty of sleep (2) Hypertension: Code(s): I10 - Essential (primary) hypertension Category: Medical Plan: Blood pressure is in prehypertensive range He is working on a diet low in salt and sodium. He is working on weight loss and exercise Will continue to monitor and follow-up at next visit (3) Elevated LDL cholesterol level: Code(s): E78.00 - Pure hypercholesterolemia, unspecified Category: Medical Plan: Cholesterol level is significantly improved though still rather high Encouraged ongoing diet low in saturated fats and cholesterol. Encouraged diet exercise and weight loss Will recheck prior to next visit Orders: Orders Comprehensive [place]. Panel Fast Today Z00.00 - Encounter for general adult medical examination without abnormal findings Lipid Panel Today E78.00 - Pure hypercholesterolemia, unspecified, Z00.00 - Encounter for general adult medical examination without abnormal findings
[2025-03-22 14:51] VITALS: BP 139/83; PULSE 64; RESP 16; TEMP 36.9; O2SAT 95; BMI 26.0
--- OUTSIDE RECORDS SUMMARY | 2025-03-22 16:07 | XMS_ITS | Clinical Summary ---
Author Organization [facility] Address [address] [place], [place] [id number] Phone Care Team Providers Care Internet Marketing Consultant Name Role Phone Albino Bates MD Primary Care Provider [phone] Allergies Active Allergy Reactions Criticality Noted Date [...] topic Medical Devices Not on file Insurance [address] [address] [place] [address] [place] [address] [place] [address] [place] [address] [address] [place] [address] ACO A[employer] [facility] [place] [address] Care Teams Internet Marketing Consultant Relationship Specialty Start Date End Date Albino Bates MD [address] [facility] [place] [place] [address] PCP - General Internal Medicine 06/17/21 Additional Source Comments The information contained in this document represents components of the legal health record. It is not the complete legal health record.[facility]
== END 2025-03-22 15:36 | disposition home or self-care (01) ==
LOC: HO.HMCFM 14:45
PROVIDERS: PCP Family Medicine; Visit Provider Family Medicine
DX: F41.8 Other specified anxiety disorders (principal); I10 Essential (primary) hypertension; E78.00 Pure hypercholesterolemia, unspecified

== ENCOUNTER → 2025-03-22 14:44 | Outpatient (BNVA) | payer OTHER, SELFPAY | PROVIDERS: PCP Family Medicine; Visit Provider Family Medicine | DX: I10 Essential (primary) hypertension (principal); F41.8 Other specified anxiety disorders; F32.A Depression, unspecified; E78.00 Pure hypercholesterolemia, unspecified; Z79.899 Other long term (current) drug therapy | CPT/HCPCS: 96127; 99212 ==